=== PATIENT | female | born 1985 | race Two or more races ===

== ENCOUNTER 2018-12-30 11:19 | Emergency (ER) | payer SELFPAY ==
[~2018-12-30] VITALS: Ht 177.8 cm; Wt 74.8 kg
[2018-12-30 11:32] VITALS: BP 142/81
[2018-12-30] MEDS ORDERED: IBUPROFEN 600 MG TABLET PO ONE ×2 (12:00→12:01)
--- NOTE | 2018-12-30 13:39 | NUR ---
Ambulatory gait even and steady NO obvious distress For discharge [facility] given verbalized understanding. Home in stable condition
== END 2018-12-30 13:43 | disposition home or self-care (01) ==
LOC: ER 11:21
DX: S33.8XXA Sprain of other parts of lumbar spine and pelvis, initial encounter (principal); W18.39XA Other fall on same level, initial encounter; Y93.89 Activity, other specified; Y92.89 Other specified places as the place of occurrence of the external cause; Y99.8 Other external cause status
CPT/HCPCS: 72100; 72220; 99283; A4606